=== PATIENT | female | born 1965 | race Caucasian/White ===

== ENCOUNTER 2017-08-08 19:30 | Emergency (ER) | END 2017-08-09 03:28 | disposition home or self-care (01) ==

== ENCOUNTER 2017-09-20 05:48 | Inpatient (IN) | END 2017-09-21 18:40 | disposition home or self-care (01) | DRG 313 ==

== ENCOUNTER 2017-09-23 00:13 | Emergency (ER) | END 2017-09-23 06:30 | disposition left against medical advice (07) ==

== ENCOUNTER 2018-04-24 19:01 | Inpatient (IN) | END 2018-05-04 18:55 | disposition home or self-care (01) | DRG 603 ==